=== PATIENT | female | born 1960 | race Caucasian/White ===

== ENCOUNTER 2017-01-12 10:48 | Day surgery (SDC) | payer BC ==
[2017-01-11 14:27] VITALS: BMI 21.9
[2017-01-12] MEDS ORDERED: LIDOCAINE HCL/PF 1% SDV 5ML VIAL ONE (12:17)
[2017-01-12] MEDS ORDERED: PROPOFOL 20 ML ONE ×2 (12:17)
[2017-01-12 13:14] VITALS: TEMP 97.5
[2017-01-12 13:45] VITALS: BP 113/71; PULSE 81
== END 2017-01-12 13:45 | disposition home or self-care (01) ==
LOC: JASU-ENDO 10:48
PROVIDERS: ATTEND Internal Medicine Gastroenterology
PROC: 0DJD8ZZ Inspection of Lower Intestinal Tract, Via Natural or Artificial Opening Endoscopic (ICD-10-PCS; principal; 2017-01-12 12:00)
DX: Z12.11 Encounter for screening for malignant neoplasm of colon (principal); K57.30 Diverticulosis of large intestine without perforation or abscess without bleeding; K64.8 Other hemorrhoids; K63.89 Other specified diseases of intestine

== ENCOUNTER → 2018-05-16 | Day surgery (SDC) | payer BC ==
--- NOTE | 2018-05-17 14:14 | PATH ---
Surgical Pathology Report Patient Name: DELANEY DOMINGO [facility]. Rec. #: [id number] /Age/Gender: 1960 (Age: 58) / F Account: [id number] Location: [facility] Taken: 05/16/2018 Received: 05/16/2018 Reported: 05/17/2018 Physicians: Levon Barnes M.D. Specimen(s) Received A: RIGHT BREAST SPECIMEN WITH CALCIFICATIONS B: RIGHT BREAST SPECIMEN WITHOUT CALCIFICATIONS Clinical History Nonpalpable lesion Mammographic findings: Microcalcification, suspicious Final Diagnosis A. 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 B. BREAST, RIGHT, WITHOUT CALCIFICATIONS, STEREOTACTIC BIOPSY: BENIGN BREAST TISSUE SHOWING STROMAL FIBROSIS AND FEW CALCIFICATIONS IN ASSOCIATION WITH BENIGN GLANDULAR PARENCHYMA. Electronically Signed Sherine Guerra M.D. Gross Description A. Received in formalin labeled "right breast with calcifications," are 7 clarke-yellow, cylindrical portions of fibroadipose tissue ranging from 0.4-3.0 cm in length and averaging 0.3 cm in diameter. The specimens are submitted in toto in 2 cassettes. B. Received in formalin labeled "right breast without calcifications," is a 2.2 x 2.0 x 0.3 cm aggregate of multiple clarke-yellow, irregular to cylindrical portions of fibroadipose tissue. The formalin is filtered and the specimen is entirely submitted in one cassette. Time to formalin fixation: 5 minutes Total formalin fixation time: Approximately 8 hours. 05/16/2018 formerly [facility]05/16/2018
== END | disposition home or self-care (01) ==
LOC: FMAMMOTONE 08:13
PROVIDERS: ATTEND Obstetrics & Gynecology
PROC: 0HBT3ZX Excision of Right Breast, Percutaneous Approach, Diagnostic (ICD-10-PCS; principal; 2018-05-16)
DX: N60.31 Fibrosclerosis of right breast (principal); N60.81 Other benign mammary dysplasias of right breast; N64.89 Other specified disorders of breast; R92.1 Mammographic calcification found on diagnostic imaging of breast
CPT/HCPCS: 19081